=== PATIENT | male | born 1955 | race Two or more races ===

== ENCOUNTER 2022-07-23 11:18 | Inpatient (IN) | payer MEDICARE, OTHER ==
[~2022-07-23] VITALS: Ht 162.6 cm; Wt 68.0 kg
--- NOTE | 2022-07-23 11:34 | NUR ---
TO ROOM 14
[2022-07-23] MEDS: CEFTRIAXONE 1 G in IV D5W 50 ML IV SCH (11:50)
[2022-07-23] MEDS ORDERED: IV NS 0.9% 1,000 ML BAG IV ONE (12:00)
--- NOTE | 2022-07-23 12:00 | NUR ---
BLOOD DRAWN AND SENT TO LAB
[2022-07-23 12:09] LABS: BASOPHILS % (AUTO) 0.3 % (0.0-2.0); EOSINOPHILS % (AUTO) 0.4 % (0.0-6.0); HEMATOCRIT 43 % (39-51); HEMOGLOBIN 14.2 g/dL (13.5-17.5); LYMPHOCYTES # (AUTO) 1.2 K/uL (0.8-4.8); LYMPHOCYTES % (AUTO) 12.1 % (20.0-44.0); MEAN CORPUSCULAR HGB CONC 33 g/dl (31.0-36.0); MEAN CORPUSCULAR VOLUME 92 fL (80-96); MONOCYTES # (AUTO) 0.7 K/uL (0.1-1.30); NEUTROPHILS # (AUTO) 7.8 K/uL (1.8-8.9); NEUTROPHILS % (AUTO) 80.2 % (43.0-81.0); PLATELET COUNT (AUTO) 250 K/uL (150-450); RED BLOOD CELL COUNT(AUTO) 4.68 MIL/uL (4.5-6.0); WHITE BLOOD COUNT (AUTO) 9.7 K/uL (4.3-11.0)
[2022-07-23] MEDS ORDERED: BISA10SU11 RC (12:12)
[2022-07-23] MEDS ORDERED: OLAN10TA3 PO (12:12)
[2022-07-23] MEDS ORDERED: DOCU-141 PO (12:12)
[2022-07-23] MEDS ORDERED: ACET-868 PO (12:12)
[2022-07-23] MEDS ORDERED: ACET-2605 PO (12:13)
[2022-07-23 12:18] LABS: CALCIUM, SERUM 8.4 mg/dL (8.5-10.1); CARBON DIOXIDE 27 mmol/L (21-32); CHLORIDE 103 mmol/L (98-107); CREATININE 1.2 mg/dL (0.6-1.3); GLUCOSE 140 mg/dL (74-106); POTASSIUM 3.8 mmol/L (3.5-5.1); SODIUM SERUM 137 mmol/L (136-145); UREA NITROGEN, BLOOD 31 mg/dL (7-18)
--- NOTE | 2022-07-23 12:30 | NUR ---
covid swab taken sent to lab
[2022-07-23 12:32] LABS: ALANINE AMINOTRANSFERASE 27 U/L (12-78); ALBUMIN 3.9 g/dL (3.4-5.0); ALCOHOL, BLOOD < 3 mg/dL (0-0); ALKALINE PHOSPHATASE 81 U/L (46-116); ASPARTATE AMINOTRANSFERASE 28 U/L (15-37); BILIRUBIN,DIRECT 0.2 mg/dL (0.0-0.2); BILIRUBIN,TOTAL 0.9 mg/dL (0.2-1.0); TOTAL PROTEIN, SERUM 8.4 g/dL (6.4-8.2)
[2022-07-23 12:34] LABS: SERUM AMMONIA 11 umol/L (11-32)
[2022-07-23 12:38] LABS: ACETAMINOPHEN < 10 ug/ml (10-30)
--- NOTE | 2022-07-23 12:39 | NUR ---
Patient confused and attempting to get out of bed, order placed for bilateral soft wrist restraints per MD
--- NOTE | 2022-07-23 12:39 | NUR ---
MRSA swab taken and sent to lab
--- NOTE | 2022-07-23 13:17 | NUR ---
Bilateral soft wrist restraints applied, circulation/motor/sensation intact distally x 2
[2022-07-23] MEDS ORDERED: LORAZEPAM INJ 2 MG/ML VIAL ONE (13:33)
[2022-07-23] MEDS ORDERED: LORAZEPAM INJ 2 MG/ML VIAL IV ONE (14:00)
--- NOTE | 2022-07-23 14:32 | NUR ---
urine sample obtained and sent to lab
--- NOTE | 2022-07-23 14:46 | NUR ---
taken to ct
[2022-07-23 14:49] LABS: BILIRUBIN,URINE NEGATIVE (NEGATIVE); COLOR,URINE YELLOW (YELLOW); LEUKOCYTE ESTERASE ,URINE NEGATIVE (NEGATIVE); NITRITE, URINE NEGATIVE (NEGATIVE); PH,URINE 5.5 (5.0-8.0); PROTEIN,URINE NEGATIVE (NEGATIVE); UGLUCOSE NEGATIVE (NEGATIVE); UROBILINOGEN,URINE 0.2 EU/dL (0.2)
--- NOTE | 2022-07-23 16:04 | NUR ---
BLADDER SCAN SHOWED RESIDUAL URINE IN BLADDER. INDWELLING CATHETER 16 FR INSERTED PER MD ORDER. STERILE TECHNIQUE USED, BALLOON INFLATED WITH 10 ML STERILE SALINE. DRAINAGE BAG HUNG FROM NON-MOVABLE AREA OF BED. 800 ML URINE DRAINED.
[2022-07-23 16:21] LABS: BACTERIA,URINE RARE /HPF (None Seen); RBC,URINE 0-2 /HPF (0-2); SQUAMOUS EPITHELIAL CELL,UR 0-2 /HPF (None Seen); WBC,URINE 0-2 /HPF (0-3)
[2022-07-23 16:22] LABS: MUCUS,URINE Few /LPF (None Seen)
--- NOTE | 2022-07-23 16:42 | NUR ---
FOLLOWED UP RESULT OF HEAD CT W/ RADIOLOGY.
[2022-07-23] MEDS ORDERED: MAG HYDROX/AL HYDROX/SIMETH 30 ML UDC PO PRN (21:30)
[2022-07-23] MEDS ORDERED: MAGNESIUM HYDROXIDE 30 ML UDC PO PRN (21:30)
[2022-07-23] MEDS ORDERED: ACETAMINOPHEN 325 MG TABLET PO PRN ×2 (21:30)
[2022-07-23] MEDS ORDERED: BISACODYL SUPP (10 MG) 10 MG/SUPP.RECT SUPP.RECT RC PRN (21:30)
[2022-07-23] MEDS ORDERED: Z GUARD REMEDY 4 OZ OINT TP PRN (21:30)
[2022-07-23] MEDS ORDERED: ACETAMINOPHEN ES 500 MG TABLET PO PRN (21:30)
[2022-07-23] MEDS ORDERED: ONDANSETRON HCL/PF 4 MG/2 ML VIAL IVP PRN (21:30)
[2022-07-23] MEDS ORDERED: ZOLPIDEM TARTRATE 5 MG TABLET PO PRN (21:30)
--- NOTE | 2022-07-23 21:50 | NUR ---
3W NURSE NOT READY FOR REPORT
--- NOTE | 2022-07-23 22:29 | NUR ---
REPORT GIVEN TO GLENNY YEPEZ FOR ORLY
[2022-07-23 22:40] VITALS: BP 125/75
--- NOTE | 2022-07-23 22:40 | NUR ---
MS RN ADMITTING NOTE PATIENT WAS TRANSPORTED FROM ER TO THE UNIT ON [facility]. PATIENT IS UNDER MED-SURG CARE. HE IS ALERT, ORIENTED TO HIS NAME ONLY. AO X 1. PATIENT IS ON RA, O2 SAT IS 97 PERCENT; NO S/S OF SOB OR DISTRESS. TOLERATED WELL. IV ACCESS IS AT HIS RIGHT AC, #20G, PATENT AND INTACT. UPON ARRIVAL, VITAL SIGNS WERE TAKE THE FOLLOWING: BP IS 125/75; HR IS 83; TEMPERATURE IS 98.5 F AXILLARY. HE HAS DIAS CATHETER DRAINING DARK YELLOW COLOR URINE BY GRAVITY; DIAS CATHETER IS PATIENT AND DRAINING FREELY. PATIENT IS VERY CONFUSED, AND TRYING TO PULL OUT HIS DIAS CATHETER AND IV ACCESS. HE IS ON SOFT WRIST RESTRAINS BILATERAL. PATIENT'S ARMS, HANDS, AND FINGERS' CIRCULATION ARE CHECKED; WNL. ORIENTED THE PATIENT WITH SURROUNDINGS AND WITH DATE, TIME AND PLACE. PATIENT NEEDS TO BE REORIENTED FREQUENTLY. SAFETY MEASURES ARE IN PLACE: BED IN LOWEST POSITION AND LOCKED; CALL LIGHT IS WITHIN REACH; BED ALARM IN PLACE; SIDE RAILS UP X 4. WILL CONTINUE MONITOR THE PATIENT AND PROVIDE THE CARE PATIENT NEEDS.
--- NOTE | 2022-07-23 22:46 | NUR ---
PATIENT TRANSFERRED, VSS.
[2022-07-23] MEDS: IV NS 0.9% 1,000 ML IV PRN (23:19)
[2022-07-23] MEDS ORDERED: CEFTRIAXONE 1 G VIAL ONE (23:48)
--- NOTE | 2022-07-23 23:48 | NUR ---
MS RN NOTE PATIENT HAS IVPB [id number] 1 GRAM IN 50 ML OF D5W DUE; CHARGE NURSE, CHARLINE, OVERRIDE THE MEDICATION EMAR. ROCEPHIN WAS GIVEN PER MD ORDERED.
[2022-07-24 06:09] LABS: BASOPHILS % (AUTO) 0.1 % (0.0-2.0); EOSINOPHILS % (AUTO) 1.3 % (0.0-6.0); HEMATOCRIT 40 % (39-51); LYMPHOCYTES # (AUTO) 1.5 K/uL (0.8-4.8); LYMPHOCYTES % (AUTO) 17.1 % (20.0-44.0); MEAN CORPUSCULAR HGB CONC 33 g/dl (31.0-36.0); MEAN CORPUSCULAR VOLUME 93 fL (80-96); NEUTROPHILS # (AUTO) 6.4 K/uL (1.8-8.9); NEUTROPHILS % (AUTO) 70.5 % (43.0-81.0); PLATELET COUNT (AUTO) 207 K/uL (150-450); RED BLOOD CELL COUNT(AUTO) 4.27 MIL/uL (4.5-6.0)
[2022-07-24 06:32] LABS: CALCIUM, SERUM 7.6 mg/dL (8.5-10.1); CREATININE 0.8 mg/dL (0.6-1.3); MAGNESIUM 2.3 mg/dL (1.8-2.4); PHOSPHORUS 2.8 mg/dL (2.5-4.9); POTASSIUM 3.3 mmol/L (3.5-5.1)
--- NOTE | 2022-07-24 07:04 | NUR ---
MS RN CLOSING NOTE PATIENT IS AWAKE, ORIENTED TO HIS NAME ONLY. AO X 1. PATIENT IS ON RA, O2 SAT IS ABOVE 95 PERCENT; NO S/S OF SOB OR DISTRESS. TOLERATED WELL. IV ACCESS IS AT HIS RIGHT AC, #20G, PATENT AND INTACT, RUNNING NS @ 75 ML / HR. DIAS CATHETER IS PATENT AND DRAINING FREELY. PATIENT IS VERY CONFUSED, AND TRYING TO PULL OUT HIS DIAS CATHETER AND IV ACCESS. HE IS ON SOFT WRIST RESTRAINS BILATERAL. PATIENT'S ARMS, HANDS, AND FINGERS' CIRCULATION ARE CHECKED; WNL. THROUGH THE NIGHT, PATIENT HAS BEEN TRYING TO GET OUT OF THE BED. PATIENT NEEDS TO BE REORIENTED FREQUENTLY. SAFETY MEASURES ARE IN PLACE: BED IN LOWEST POSITION AND LOCKED; CALL LIGHT IS WITHIN REACH; BED ALARM IN PLACE; SIDE RAILS UP X 4. WILL ENDORSE NEXT SHIFT NURSE FOR CONTINUING PATIENT CARE.
--- NOTE | 2022-07-24 07:45 | NUR ---
RN OPENING NOTE RECEIVED PATIENT IS AWAKE. AO X 1. PATIENT IS ON RA, BREATHING EVEN AND NONLABORED; NO S/S OF SOB OR DISTRESS. IV ACCESS IS AT HIS RIGHT AC, #20G, PATENT AND INTACT, RUNNING NS @ 75 ML / HR. DIAS CATHETER IS PATENT AND DRAINING FREELY. PT IS ON SOFT WRIST RESTRAINS BILATERAL. PATIENT'S ARMS, HANDS, AND FINGERS' CIRCULATION ARE CHECKED; WNL. SAFETY PRECAUTIONS IMPLEMENTED: CALL LIGHT AND TABLE WITHIN REACH, HOB ELEVATED. SIDE RAILS UP X 2, BED IN LOWEST AND LOCKED POSITION. WILL CONTINUE MONITOR PATIENT'S CONDITION THROUGH THE SHIFT AND PROVIDE THE CARE HE NEEDS.
[2022-07-24 08:00] VITALS: BP 131/75
[2022-07-24] MEDS: DOCUSATE SODIUM 100 MG CAPSULE PO SCH ×2 (08:57→16:24)
[2022-07-24] MEDS ORDERED: POTASSIUM CHLORIDE 20 MEQ TAB.PRT.SR PO SCH (10:00)
[2022-07-24] MEDS: CEFTRIAXONE 1 G in IV D5W 50 ML IV SCH (10:55)
[2022-07-24 16:00] VITALS: BP 146/77
[2022-07-24] MEDS: OLANZAPINE 5 MG TABLET PO SCH (16:59)
--- NOTE | 2022-07-24 18:45 | NUR ---
RN CLOSING NOTE PATIENT IS AWAKE IN BED. AO X 1. PATIENT IS ON RA, BREATHING EVEN AND NON LABORED. NO S/S OF SOB OR DISTRESS NOTED AT THIS TIME. IV ACCESS IS AT HIS RIGHT AC, #20G, PATENT AND INTACT, RUNNING NS @ 75 ML/HR. DIAS CATHETER IS PATENT AND DRAINING FREELY. HE IS ON SOFT WRIST RESTRAINS BILATERAL. SAFETY MEASURES ARE IN PLACE: BED IN LOWEST POSITION AND LOCKED; CALL LIGHT IS WITHIN REACH; BED ALARM IN PLACE; SIDE RAILS UP X 4. WILL ENDORSE NEXT SHIFT NURSE FOR ORLY.
--- NOTE | 2022-07-24 19:42 | NUR ---
RN OPENING NOTES: RECEIVED PATIENT AWAKE IN BED, BED IN LOW POSITION, CALL LIGHTS WITHIN REACH, NO COMPLAIN OF PAIN AND DISCOMFORT AT THIS TIME, ON ROOM AIR SATURATING WELL, PATIENT IS A/O X 1 WITH EPISODE OF CONFUSION, ON BILATERAL SOFT WRIST RESTRAINT, IV LINE AT RAC#20 WITH ONGOING NSS@75ML/HR INFUSING WELL, PATIENT KEPT CLEAN AND DRY ALL NEEDS MET WILL CONTINUE TO MONITOR.
[2022-07-24 20:00] VITALS: BP 120/87
[2022-07-24] MEDS: TAMSULOSIN 0.4 MG CAP.SR.24H PO SCH (22:52)
[2022-07-24] MEDS: IV NS 0.9% 1,000 ML IV PRN (23:57)
--- NOTE | 2022-07-25 06:36 | NUR ---
RN CLOSING NOTES; PATIENT SLEEP IN BED COMFORTABLY, AROUSABLE TO VERBAL STIMULI, BED IN LOW POSITION, CALL LIGHTS WITHIN REACH, NO COMPLAIN OF PAIN AND DISCOMFORT AT THIS TIME, ON ROOM AIR SATURATING WELL, PATIENT ON BILATERAL SOFT WRIST RESTRAINT CHECK EVERY 2 HOURS, ON DIAS CATHETER-700 URINE OUTPUT, IV LINE AT [id number] WITH ONGOING NSS@75ML/HR INFUSING WELL, PATIENT KEPT CLEAN AND DRY ALL NEEDS MET ENDORSE TO INCOMING SHIFT,
[2022-07-25 06:39] LABS: CALCIUM, SERUM 7.4 mg/dL (8.5-10.1); POTASSIUM 3.6 mmol/L (3.5-5.1)
--- NOTE | 2022-07-25 07:00 | NUR ---
MS RN OPENING NOTES: RECEIVED PATIENT IN BED ASLEEP EASILY AROUSED WITH STIMULI ALERT AND ORIENTED X 1. NEEDS FREQUENT REORIENTATION. NO SOB OR CARDIAC DISTRESS NOTED, DENIES PAIN AT THIS TIME. BILATERAL SOFT RESTRAINT NOTED, PT ABLE TO MOVE HAND FREELY, WITH GOOD CAPILLARY REFILL. IV ACCESS ON RAC GAUGE 20 PATENT, INTACT AND INFUSING IV FLUIDS NS 1L @ 75ML/HR. DIAS CATH IN PLACE DRAINING YELLOW COLORED URINE BY GRAVITY. SAFETY MEASURES MAINTAINED: BED LOCKED AND IN LOWEST POSITION, SIDE RAILS UP X 3, CALL LIGHT AND BED SIDE TABLE IN EASY REACH AND WILL MONITOR PT ACCORDINGLY.
--- NOTE | 2022-07-25 07:00 | NUR ---
MS YEPEZ OPENING NOTES: RECEIVED PATIENT IN BED AWAKE, ALERT AND ORIENTED X 3. NO SOB OR CARDIAC DISTRESS NOTED, DENIES PAIN AT THIS TIME. IV ACCESS ON LAC GAUGE 20 PATENT, INTACT AND SL. PURE WICK ATTACHED IN PLACE DRAINING YELLOW COLORED URINE BY INTERMITTENT SUCTION. MAINTAINED NPO. SAFETY MEASURES MAINTAINED: BEED LOCKED AND IN LOWEST POSITION, SIDE RAILS UP X 2, CALL LIGHT AND BED SIDE TABLE IN EASY REACH AND WILL MONITOR PT ACCORDINGLY. Addendum: 07/25/22 at 0819 by STEVEN RAMOS RN ERROR,IGNORE
[2022-07-25 08:00] VITALS: BP 120/80
[2022-07-25] MEDS: CEFTRIAXONE 1 G in IV D5W 50 ML IV SCH (08:41)
[2022-07-25] MEDS: DOCUSATE SODIUM 100 MG CAPSULE PO SCH ×2 (08:41→17:13)
[2022-07-25] MEDS: OLANZAPINE 5 MG TABLET PO SCH ×2 (08:41→17:13)
--- NOTE | 2022-07-25 12:00 | NUR ---
RN NOTES: NEHA MALONE ORDERED TO REMOVE DIAS CATHETER, ORDERS NOTED AND CARRIED OUT.
[2022-07-25] MEDS: OLANZAPINE ZYDIS 5 MG TAB.RAPDIS PO PRN (13:38)
[2022-07-25 16:00] VITALS: BP 160/85
--- NOTE | 2022-07-25 19:00 | NUR ---
MS RN CLOSING NOTES: PATIENT IN BED AWAKE, CALM BUT HAD EPISODES OF BEING AGITATED. PT NEEDS FREQUENT REORIENTATION AND REDIRECTION.NO SOB OR CARDIAC DISTRESS NOTED. DENIES PAIN AT THIS TIME. IV ACCESS ON RAC GAUGE 20 PATENT, INTACT AND INFUSING NS @75ML/HR. BILATERAL SOFT RESTRAINT. WITH GOOD CAPILLARY REFIL, PT ABLE TO MOVE HANDS FREELY WITHOUT ANY PAIN. SAFETY MEASURES MAINTAINED:BED LOCKED AND IN LOWEST POSITION, SIDE RAILS UP X 3. CALL LIGHT IN EASY REACH AND WILL ENDORSE TO CARPENTER ASSISTANT RN FOR CONTINUITY OF CARE.
--- NOTE | 2022-07-25 19:42 | NUR ---
MS RN OPENING NOTES: RECEIVED PATIENT AWAKE IN BED, BED IN LOW POSITION CALL LIGHTS WITHIN REACH, NO COMPLAIN OF PAIN AND DISCOMFORT AT THIS TIME, ON ROOM AIR SATURATING WELL, PATIENT IS A/O X1 WITH CONFUSION, IV LINE AT RAC#20 WITH ONGOING NSS@75ML/HR INFUSING WELL, ON BILATERAL SOFT WRIST RESTRAINT, PATIENT KEPT CLEAN AND DRY ALL NEEDS MET WILL CONTINUE TO MONITOR.
[2022-07-25 20:00] VITALS: BP_SYST 135; BP_DIAS 70; BP_DIAS 77
[2022-07-25] MEDS: TAMSULOSIN 0.4 MG CAP.SR.24H PO SCH (22:16)
[2022-07-26] MEDS: IV NS 0.9% 1,000 ML IV PRN (01:18)
[2022-07-26] MEDS: OLANZAPINE ZYDIS 5 MG TAB.RAPDIS PO PRN (03:24)
[2022-07-26 06:08] LABS: CALCIUM, SERUM 7.9 mg/dL (8.5-10.1); CREATININE 0.7 mg/dL (0.6-1.3); POTASSIUM 3.4 mmol/L (3.5-5.1)
[2022-07-26 06:16] LABS: BASOPHILS % (AUTO) 0.3 % (0.0-2.0); EOSINOPHILS % (AUTO) 1.5 % (0.0-6.0); HEMATOCRIT 40 % (39-51); LYMPHOCYTES # (AUTO) 1.9 K/uL (0.8-4.8); LYMPHOCYTES % (AUTO) 22.1 % (20.0-44.0); MEAN CORPUSCULAR HGB CONC 33 g/dl (31.0-36.0); MEAN CORPUSCULAR VOLUME 92 fL (80-96); MONOCYTES % (AUTO) 11.7 % (2.0-12.0); NEUTROPHILS # (AUTO) 5.5 K/uL (1.8-8.9); NEUTROPHILS % (AUTO) 64.4 % (43.0-81.0); PLATELET COUNT (AUTO) 223 K/uL (150-450); RED BLOOD CELL COUNT(AUTO) 4.32 MIL/uL (4.5-6.0); WHITE BLOOD COUNT (AUTO) 8.5 K/uL (4.3-11.0)
--- NOTE | 2022-07-26 07:10 | NUR ---
MS RN OPENING NOTES RECEIVED PATIENT SLEEPING IN BED, A/Ox1, EPISODES OF CONFUSION. ON ROOM AIR, NO S/S OF RESPIRATORY DISTRESS. IV ACCESS RAC #20G RUNNING NS @ 75 ML/HR INTACT AND PATENT. ON BED REST, SKIN INTACT. BILATERAL SOFT WRIST RESTRAINTS, SKIN INTACT AND CIRCULATION WNL. SAFETY MEASURES IN PLACE: BED LOCKED AND IN LOWEST POSITION, SIDE RAILS UPx3, BED ALARM ON, HOB ELEVATED, CALL LIGHT WITHIN REACH. WILL CONTINUE TO MONITOR.
[2022-07-26 08:00] VITALS: BP 120/70
[2022-07-26] MEDS: DOCUSATE SODIUM 100 MG CAPSULE PO SCH ×2 (09:06→16:32)
[2022-07-26] MEDS: OLANZAPINE 5 MG TABLET PO SCH ×2 (09:06→16:32)
[2022-07-26] MEDS: CEFTRIAXONE 1 G in IV D5W 50 ML IV SCH (09:10)
[2022-07-26] MEDS ORDERED: POTASSIUM CHLORIDE 20 MEQ TAB.PRT.SR PO ONE (11:00)
[2022-07-26 17:00] VITALS: BP 136/95
--- NOTE | 2022-07-26 18:58 | NUR ---
MS RN CLOSING NOTES PATIENT SLEEPING IN BED, A/Ox1, EPISODES OF CONFUSION. ON ROOM AIR, NO S/S OF RESPIRATORY DISTRESS. IV ACCESS RAC #20G RUNNING NS @ 75 ML/HR INTACT AND PATENT. ON BED REST, SKIN INTACT. BILATERAL SOFT WRIST RESTRAINTS, SKIN INTACT AND CIRCULATION WNL. SAFETY MEASURES MAINTAINED: BED LOCKED AND IN LOWEST POSITION, SIDE RAILS UPx3, BED ALARM ON, HOB ELEVATED, CALL LIGHT WITHIN REACH. WILL ENDORSE TO NEXT SHIFT ANY ORLY.
--- NOTE | 2022-07-26 19:30 | NUR ---
RN OPENING NOTE PATIENT IN BED, AWAKE. PATIENT IS A/O X 1, WITH CONFUSION. PATIENT IS ON RA, TOLERATING WELL, NO SOB NOTED. BREATHING EVEN AND UNLABORED. PATIENT HAS A RAC 20 G PATENT AND INTACT, INFUSING NS AT 75 ML/HR. PATIENT DOES NOT SEEM TO BE IN PAIN VIA FLACC. GIOVANNY SOFT WRIST RESTRAINS ON PATIENT, CIRCULATION CHECKED, NO INJURIES FROM RESTRAINTS NOTED. SAFETY MEASURES IN PLACE: BED LOCKED AND IN LOWEST POSITION, CALL LIGHT WITHIN REACH, SIDE RAILS UP. WILL MONITOR PATIENT CLOSELY.
[2022-07-26 20:00] VITALS: BP 143/96
[2022-07-26] MEDS: TAMSULOSIN 0.4 MG CAP.SR.24H PO SCH (21:22)
[2022-07-27] MEDS: IV NS 0.9% 1,000 ML IV PRN (01:18)
[2022-07-27 05:55] LABS: BASOPHILS % (AUTO) 0.4 % (0.0-2.0); EOSINOPHILS % (AUTO) 0.9 % (0.0-6.0); HEMATOCRIT 37 % (39-51); HEMOGLOBIN 12.2 g/dL (13.5-17.5); LYMPHOCYTES # (AUTO) 1.1 K/uL (0.8-4.8); LYMPHOCYTES % (AUTO) 16.2 % (20.0-44.0); MEAN CORPUSCULAR HGB CONC 33 g/dl (31.0-36.0); MEAN CORPUSCULAR VOLUME 91 fL (80-96); MONOCYTES # (AUTO) 0.7 K/uL (0.1-1.30); MONOCYTES % (AUTO) 9.7 % (2.0-12.0); NEUTROPHILS # (AUTO) 5.1 K/uL (1.8-8.9); NEUTROPHILS % (AUTO) 72.8 % (43.0-81.0); PLATELET COUNT (AUTO) 233 K/uL (150-450)
[2022-07-27 06:41] LABS: CALCIUM, SERUM 7.9 mg/dL (8.5-10.1); CREATININE 0.8 mg/dL (0.6-1.3); MAGNESIUM 2.4 mg/dL (1.8-2.4); PHOSPHORUS 3.3 mg/dL (2.5-4.9); POTASSIUM 3.2 mmol/L (3.5-5.1)
--- NOTE | 2022-07-27 07:29 | NUR ---
RN CLOSING NOTE PATIENT IN BED, EYES CLOSED. PATIENT IS A/O X 1, WITH CONFUSION. PATIENT IS ON RA, TOLERATING WELL, NO SOB NOTED. BREATHING EVEN AND UNLABORED. PATIENT HAS A RAC 20 G PATENT AND INTACT, INFUSING NS AT 75 ML/HR. PATIENT DOES NOT SEEM TO BE IN PAIN VIA FLACC. GIOVANNY SOFT WRIST RESTRAINS REMAINED ON THE PATIENT DURING THE SHIFT. TRIES TO CONTINUOUSLY GET OUT OF BED. SAFETY MEASURES IN PLACE: BED LOCKED AND IN LOWEST POSITION, CALL LIGHT WITHIN REACH, SIDE RAILS UP. ALL NEEDS MET AND ATTENDED. ALL ORDERS CARRIED OUT. ENDORSED TO DAY SHIFT NURSE FOR ORLY.
[2022-07-27] MEDS: OLANZAPINE 5 MG TABLET PO SCH (08:43)
[2022-07-27] MEDS: DOCUSATE SODIUM 100 MG CAPSULE PO SCH (08:43)
[2022-07-27] MEDS: CEFTRIAXONE 1 G in IV D5W 50 ML IV SCH (08:45)
[2022-07-27] MEDS ORDERED: POTASSIUM CHLORIDE 20 MEQ TAB.PRT.SR PO ONE (10:00)
[2022-07-27] MEDS ORDERED: Tamsulosin PO (13:24)
[2022-07-27] MEDS ORDERED: Olanzapine PO (13:24)
[2022-07-27] MEDS ORDERED: OLAN5TAB6 PO (13:24)
--- NOTE | 2022-07-27 17:30 | NUR ---
FITNESS COORDINATOR NOTES PATIENT DISCHARGED BACK TO SNF. REPORT GIVEN TO LOYD YEPEZ. PATIENT A/Ox1 CONFUSED AND FORGETFUL. STABLE ON ROOM AIR. NO S/S OF RESPIRATORY DISTRESS. PATIENT UNABLE TO COMPREHEND HEALTH TEACHINGS AND DISCHARGE INSTRUCTIONS. INSTRUCTIONS GIVEN TO SNF RNLOYD. SKIN INTACT. PATIENT PICKED UP BY TWO bingo manager. V/S STABLE. IV ACCESS REMOVED, PRESSURE DRESSING APPLIED. ID BAND REMOVED. PATIENT LEFT UNIT @1700. MD AND CHARGE NURSE AWARE OF DISCHARGE.
== END 2022-07-27 17:00 | DRG 193 ==
LOC: ER 11:32 → MED 21:13
PROVIDERS: ADMIT Nurse Practitioner Acute Care; ATTEND Student in an Organized Health Care Education/Training Program
DX: J15.9 Unspecified bacterial pneumonia (principal); G93.41 Metabolic encephalopathy; F03.93 Unspecified dementia, unspecified severity, with mood disturbance; M84.48XA Pathological fracture, other site, initial encounter for fracture; F05 Delirium due to known physiological condition; F25.0 Schizoaffective disorder, bipolar type; E83.51 Hypocalcemia; R33.9 Retention of urine, unspecified
CPT/HCPCS: 36415; 70450-TC; 71045-TC; 80048-TC; 80076-TC; 81001; 82140-TC; 83605-TC; 83735-TC; 84100-TC; 84484-TC; 85025-TC; 87040-TC; 87081-TC; 87086-TC; 97112-TC; 97116-TC; 97530-TC; C9803; G0378; G0480; J0696; J2060; J7030; J7060

== ENCOUNTER 2023-04-05 23:05 | Emergency (ER) | payer MEDICARE, OTHER ==
[~2023-04-05] VITALS: Ht 172.7 cm; Wt 73.5 kg
[~2023-04-05 23:05] MED LIST: ACET-2605 PO; ACET-868 PO; BISA10SU11 RC; DOCU-141 PO; OLAN5TAB6 PO; Olanzapine PO; Tamsulosin PO
[2023-04-06] MEDS ORDERED: OLANZAPINE 10 MG VIAL IM ONE
[2023-04-06 00:24] LABS: BASOPHILS # (AUTO) 0.2 K/uL (0.0-0.2); BASOPHILS % (AUTO) 1.5 % (0.0-2.0); EOSINOPHILS # (AUTO) 0.1 K/uL (0.0-0.7); EOSINOPHILS % (AUTO) 0.8 % (0.0-6.0); HEMATOCRIT 44 % (39-51); HEMOGLOBIN 14.2 g/dL (13.5-17.5); LYMPHOCYTES # (AUTO) 1.9 K/uL (0.8-4.8); LYMPHOCYTES % (AUTO) 14.6 % (20.0-44.0); MEAN CORPUSCULAR HEMOGLOBIN 30 PG (26.0-33.0); MEAN CORPUSCULAR HGB CONC 32 g/dl (31.0-36.0); MEAN CORPUSCULAR VOLUME 93 fL (80-96); MONOCYTES # (AUTO) 0.5 K/uL (0.1-1.30); MONOCYTES % (AUTO) 3.5 % (2.0-12.0); NEUTROPHILS # (AUTO) 10.4 K/uL (1.8-8.9); NEUTROPHILS % (AUTO) 79.6 % (43.0-81.0); PLATELET COUNT (AUTO) 212 K/uL (150-450); RED CELL DISTRIBUTION WIDTH 13.7 % (11.5-15.0); WHITE BLOOD COUNT (AUTO) 13.1 K/uL (4.3-11.0)
[2023-04-06 00:42] LABS: INR 0.98 (0.91-1.10); PARTIAL THROMBOPLASTIN TIME 25.4 SEC (24.3-34.3); PROTHROMBIN TIME 10.3 SECS (9.2-11.1)
[2023-04-06 00:45] LABS: THYROID STIMULATING HORMONE 1.858 uIU/mL (0.358-3.74)
[2023-04-06 00:54] LABS: ALANINE AMINOTRANSFERASE 39 U/L (12-78); ALBUMIN 3.6 g/dL (3.4-5.0); ALKALINE PHOSPHATASE 74 U/L (46-116); ASPARTATE AMINOTRANSFERASE 24 U/L (15-37); BILIRUBIN,DIRECT 0.1 mg/dL (0.0-0.2); BILIRUBIN,TOTAL 0.2 mg/dL (0.2-1.0); CALCIUM, SERUM 8.5 mg/dL (8.5-10.1); CARBON DIOXIDE 20 mmol/L (21-32); CHLORIDE 105 mmol/L (98-107); CREATININE 1.3 mg/dL (0.6-1.3); GLUCOSE 135 mg/dL (74-106); POTASSIUM 3.9 mmol/L (3.5-5.1); SODIUM SERUM 139 mmol/L (136-145); TOTAL PROTEIN, SERUM 7.7 g/dL (6.4-8.2); UREA NITROGEN, BLOOD 33 mg/dL (7-18)
[2023-04-06 01:17] LABS: APPEARANCE,URINE CLEAR (CLEAR); BILIRUBIN,URINE NEGATIVE (NEGATIVE); BLOOD, URINE TRACE-INTA Ery/uL (NEGATIVE); COLOR,URINE YELLOW (YELLOW); KETONES,URINE NEGATIVE (NEGATIVE); LEUKOCYTE ESTERASE ,URINE NEGATIVE (NEGATIVE); NITRITE, URINE NEGATIVE (NEGATIVE); PH,URINE 5.5 (5.0-8.0); PROTEIN,URINE NEGATIVE (NEGATIVE); UGLUCOSE NEGATIVE (NEGATIVE); UROBILINOGEN,URINE 0.2 EU/dL (0.2)
[2023-04-06 07:59] VITALS: BP 146/80; TEMP 98.5; O2SAT 98
== END 2023-04-06 08:12 ==
LOC: ER 23:10
DX: R41.82 Altered mental status, unspecified (principal); F03.90 Unspecified dementia, unspecified severity, without behavioral disturbance, psychotic disturbance, mood disturbance, and anxiety; F20.9 Schizophrenia, unspecified
CPT/HCPCS: 36415; 70450-TC; 71045-TC; 80048-TC; 80076-TC; 82962-TC; 84443-TC; 84484-TC; 85025-TC; 85730-TC

== ENCOUNTER 2025-06-05 16:56 | Inpatient (IN) | payer MEDICARE, OTHER ==
[~2025-06-05] VITALS: Ht 165.1 cm; Wt 67.1 kg
[2025-06-05] MEDS: IV NS 0.9% 500 ML BAG IV ONE (17:00)
[2025-06-05 17:38] LABS: PLATELET COUNT (AUTO) 224 K/uL (150-450); RED BLOOD CELL COUNT(AUTO) 4.60 MIL/uL (4.5-6.0); RED CELL DISTRIBUTION WIDTH 14.2 % (11.5-15.0); WHITE BLOOD COUNT (AUTO) 10.7 K/uL (4.3-11.0)
[2025-06-05 17:48] LABS: CALCIUM, SERUM 8.5 mg/dL (8.5-10.1); CREATININE 1.2 mg/dL (0.6-1.3); SODIUM SERUM 143.0 mmol/L (136-145); UREA NITROGEN, BLOOD 30.0 mg/dL (7-18)
[2025-06-05] MEDS ORDERED: DEXTROSE 50%-WATER 50 ML DISP.SYRIN IV PRN (18:30)
[2025-06-05] MEDS ORDERED: ACETAMINOPHEN 325 MG TABLET PO PRN (18:30)
[2025-06-05] MEDS ORDERED: Z GUARD REMEDY 4 OZ OINT TP PRN (18:30)
[2025-06-05] MEDS ORDERED: MAGNESIUM HYDROXIDE 30 ML UDC PO PRN (18:30)
[2025-06-05] MEDS ORDERED: ONDANSETRON HCL/PF 4 MG/2 ML VIAL IVP PRN (18:30)
[2025-06-05 20:38] VITALS: O2SAT 97
[2025-06-05 21:45] VITALS: BP 138/86; TEMP 97.5; O2SAT 98
[2025-06-05] MEDS: BLOOD SUGAR DIAGNOSTIC 1 EACH STRIP IN SCH (22:25)
[2025-06-05] MEDS: INSULIN REGULAR, HUMAN 100 UNIT/ML 3 ML VIAL SQ PRN (22:26)
[2025-06-06] MEDS: IV 1/2NS 1000 ML 1,000 ML IV PRN (05:15)
[2025-06-06 07:41] LABS: PLATELET COUNT (AUTO) 208 K/uL (150-450); RED BLOOD CELL COUNT(AUTO) 4.45 MIL/uL (4.5-6.0); RED CELL DISTRIBUTION WIDTH 13.8 % (11.5-15.0); WHITE BLOOD COUNT (AUTO) 7.4 K/uL (4.3-11.0)
[2025-06-06 08:00] VITALS: BP 135/98; TEMP 97.5; O2SAT 100
[2025-06-06 08:00] LABS: CALCIUM, SERUM 8.2 mg/dL (8.5-10.1); CREATININE 0.9 mg/dL (0.6-1.3); PHOSPHORUS 2.9 mg/dL (2.5-4.9); SODIUM SERUM 142.0 mmol/L (136-145); UREA NITROGEN, BLOOD 19.0 mg/dL (7-18)
[2025-06-06] MEDS: PANTOPRAZOLE 40 MG TABLET.DR PO SCH (08:24)
[2025-06-06] MEDS: OLANZAPINE 2.5 MG TABLET PO ONE (11:56)
[2025-06-06 16:00] VITALS: BP 131/80; TEMP 97.9; O2SAT 98
[2025-06-06 20:00] VITALS: BP 127/81; TEMP 97.7; O2SAT 95
[2025-06-07 06:50] LABS: PLATELET COUNT (AUTO) 229 K/uL (150-450); RED BLOOD CELL COUNT(AUTO) 4.70 MIL/uL (4.5-6.0); RED CELL DISTRIBUTION WIDTH 13.9 % (11.5-15.0); WHITE BLOOD COUNT (AUTO) 8.3 K/uL (4.3-11.0)
[2025-06-07 07:11] LABS: CALCIUM, SERUM 8.4 mg/dL (8.5-10.1); CREATININE 0.9 mg/dL (0.6-1.3); PHOSPHORUS 3.4 mg/dL (2.5-4.9); SODIUM SERUM 140.0 mmol/L (136-145); UREA NITROGEN, BLOOD 18.0 mg/dL (7-18)
[2025-06-07 08:00] VITALS: BP 131/79; TEMP 97.9; O2SAT 96
[2025-06-07] MEDS: MEGESTROL ACETATE 40 MG TABLET PO SCH (10:36)
[2025-06-07] MEDS ORDERED: DIVA-78 PO ×2 (12:02)
[2025-06-07] MEDS ORDERED: POVI37802 TP (12:02)
[2025-06-07] MEDS ORDERED: MELA3CAP2 PO (12:12)
[2025-06-07] MEDS ORDERED: MAG30ORA PO (12:12)
[2025-06-07] MEDS ORDERED: MAGN400O21 PO (12:12)
[2025-06-07] MEDS ORDERED: OLAN2.5T3 PO (12:20)
[2025-06-07] MEDS ORDERED: METF-440 PO (12:20)
[2025-06-07 16:00] VITALS: BP 124/88; TEMP 97.2; O2SAT 98
[2025-06-07 20:00] VITALS: BP 152/99; TEMP 98.2; O2SAT 100
[2025-06-07] MEDS: DIVALPROEX SODIUM 125 MG TABLET.DR PO SCH (21:41)
[2025-06-08 06:47] LABS: PLATELET COUNT (AUTO) 215 K/uL (150-450); RED BLOOD CELL COUNT(AUTO) 4.89 MIL/uL (4.5-6.0); RED CELL DISTRIBUTION WIDTH 13.8 % (11.5-15.0); WHITE BLOOD COUNT (AUTO) 8.6 K/uL (4.3-11.0)
[2025-06-08 07:02] LABS: CALCIUM, SERUM 8.4 mg/dL (8.5-10.1); CREATININE 0.9 mg/dL (0.6-1.3); PHOSPHORUS 3.0 mg/dL (2.5-4.9); SODIUM SERUM 139.0 mmol/L (136-145); UREA NITROGEN, BLOOD 21.0 mg/dL (7-18)
[2025-06-08 08:00] VITALS: BP 129/80; TEMP 98.1; O2SAT 95
[2025-06-08] MEDS: OLANZAPINE 2.5 MG TABLET PO SCH (09:02)
[2025-06-08] MEDS: DIVALPROEX SODIUM 125 MG TABLET.DR PO SCH (09:02)
[2025-06-08 16:00] VITALS: BP 111/70; TEMP 98.1; O2SAT 96
== END 2025-06-08 18:20 | DRG 640 ==
LOC: ER 17:00 → MED 21:13
PROVIDERS: ADMIT Nurse Practitioner Family; ATTEND Nurse Practitioner Family
DX: E86.0 Dehydration (principal); G93.41 Metabolic encephalopathy; F07.81 Postconcussional syndrome; S01.01XD Laceration without foreign body of scalp, subsequent encounter; E11.9 Type 2 diabetes mellitus without complications; F03.90 Unspecified dementia, unspecified severity, without behavioral disturbance, psychotic disturbance, mood disturbance, and anxiety; F25.9 Schizoaffective disorder, unspecified; M19.90 Unspecified osteoarthritis, unspecified site; Z91.81 History of falling; Z79.84 Long term (current) use of oral hypoglycemic drugs
CPT/HCPCS: 36415; 70450-TC; 71045-TC; 80048-TC; 82962-TC; 83735-TC; 84100-TC; 85025-TC; 87081-TC; A4223; G0378; J1815; J3490; J7030; J7040